=== PATIENT | female | born 1995 | race Caucasian/White ===

== ENCOUNTER 2017-05-05 21:47 | Emergency (ER) | payer MEDICAID ==
[~2017-05-05] VITALS: Ht 149.9 cm; Wt 84.0 kg
[2017-05-06 00:17] LABS: CLARITY URINE CLOUDY (CLEAR); COLOR URINE YELLOW (YELLOW); GLUCOSE URINE NEGATIVE (NEGATIVE); KETONES URINE NEGATIVE (NEGATIVE); LEUKOCYTE ESTERASE URINE NEGATIVE (NEGATIVE); NITRITE URINE NEGATIVE (NEGATIVE); OCCULT BLOOD URINE 2+ (NEGATIVE); PH URINE 5.5 (4.5-8.0); PROTEIN URINE TRACE (NEGATIVE); SPECIFIC GRAVITY URINE 1.038 (1.005-1.030)
[2017-05-06] MEDS ORDERED: IBUPROFEN 400MG TABLET PO ONE (02:15)
[2017-05-06] MEDS ORDERED: ACETAMINOPHEN 325MG TABLET PO ONE (02:15)
[2017-05-06 04:29] VITALS: BP 106/58
== END 2017-05-06 04:31 | disposition home or self-care (01) ==
LOC: ER 21:47
DX: J06.9 Acute upper respiratory infection, unspecified (principal)
CPT/HCPCS: 81001; 81003; 81025; 99283

== ENCOUNTER 2018-08-09 12:35 | Emergency (ER) | payer MEDICAID ==
[~2018-08-09] VITALS: Ht 149.9 cm; Wt 81.5 kg
[2018-08-09 13:36] VITALS: BP 122/43
[2018-08-09 19:35] LABS: CLARITY URINE TURBID (CLEAR); COLOR URINE YELLOW (YELLOW); KETONES URINE 1+ (NEGATIVE); LEUKOCYTE ESTERASE URINE 1+ (NEGATIVE); NITRITE URINE POSITIVE (NEGATIVE); OCCULT BLOOD URINE NEGATIVE (NEGATIVE); PROTEIN URINE NEGATIVE (NEGATIVE)
== END 2018-08-09 20:20 | disposition left against medical advice (07) ==
LOC: ER 12:35
DX: N93.8 Other specified abnormal uterine and vaginal bleeding (principal); Z53.21 Procedure and treatment not carried out due to patient leaving prior to being seen by health care provider